=== PATIENT | male | born 1985 | race Caucasian/White ===

== ENCOUNTER 2017-03-13 22:36 | Emergency (ER) | payer OTHER, MEDICAID ==
[2017-03-13 23:09] LABS: microscopic required? NO
[2017-03-13 23:17] LABS: BASOPHIL % 0.4 % (0-2); PLATELET COUNT 322 x10^3mcL (130-400); RED CELL DISTRIBUTION WIDTH 13.4 % (11.5-14.5)
[2017-03-13 23:24] LABS: UA SPECIFIC GRAVITY 1.005 (1.005-1.035)
[2017-03-13 23:25] LABS: urine erythrocyte NEGATIVE (NEGATIVE)
[2017-03-13 23:28] LABS: CALCIUM 9.2 mg/dL (8.5-10.1); CARBON DIOXIDE 28.7 mmol/L (21-32); CHLORIDE SERUM 101 mmol/L (98-107); CREATININE SERUM 0.8 mg/dL (0.7-1.3); GFR1 > 60 mL/min; GLUCOSE SERUM 120 mg/dL (74-106); POTASSIUM SERUM 3.4 mmol/L (3.5-5.1); SODIUM SERUM 137 mmol/L (136-145)
[2017-03-13 23:31] LABS: AMPHETAMINE QUAL UR NONE DETECTED (NEG <=1000)
[2017-03-13 23:38] LABS: ALBUMIN 4.5 g/dL (3.4-5.0); ALKALINE PHOSPHATASE 68 U/L (46-116); ALT/SGPT 92 U/L (16-63); AST/SGOT 47 U/L (15-37); BILIRUBIN TOTAL 0.3 mg/dL (0.20-1.00)
[2017-03-13 23:42] LABS: TOTAL PROTEIN, SERUM 8.7 g/dL (6.4-8.2)
[2017-03-14 00:04] VITALS: BP 160/89
== END 2017-03-14 00:04 | disposition home or self-care (01) ==
LOC: ED 22:36
PROVIDERS: Emergency Medicine
DX: F20.9 Schizophrenia, unspecified (principal); F31.9 Bipolar disorder, unspecified; F90.9 Attention-deficit hyperactivity disorder, unspecified type; F12.10 Cannabis abuse, uncomplicated; F10.10 Alcohol abuse, uncomplicated; F17.200 Nicotine dependence, unspecified, uncomplicated
CPT/HCPCS: 36415; G0480